=== PATIENT | male | born 1970 | race Caucasian/White ===

== ENCOUNTER → 2018-12-05 | Outpatient (CLI) | payer OTHER ==
--- NOTE | 2018-12-05 08:55 | MR ---
EXAMINATION TYPE: MR shoulder RT wo con DATE OF EXAM: 12/05/2018 COMPARISON: NONE HISTORY: Right shoulder pain, synovitis and tenosynovitis, bursitis, rotator cuff tendinopathy, loose body, os acromiale ORDER. TECHNIQUE: Multiplanar, multisequence imaging of the right shoulder is performed without contrast. FINDINGS: Rotator Cuff: Marked increased signal within the distal supraspinatus tendon with less prominent incr eased signal involving the infraspinatus tendon but there is articular surface tear at level of the i nfraspinatus tendon measuring 19 mm in AP diameter sagittal measures 23 x 9 mm transversely coronal i mage 20 . Complete tear of the subscapularis tendon is present with stump retraction to the medial ma rgin of humerus seen best coronal image 8. Rotator cuff muscle bulk is preserved. Acromioclavicular Joint: Os acromiale is confirmed seen best on axial image 21. Moderate to severe na rrowing with moderate capsular hypertrophy. Loss of underlying fat plane. Distal acromion morphology unremarkable. Glenohumeral Joint: Moderate to severe narrowing particularly inferior aspect with small to moderate size joint effusion extending inferiorly coronal image 18. Labrum: The superior labrum shows abnormal signal consistent with degenerative tear coronal image 14. Biceps Tendon: The long head of biceps is dislocated medially from groove but remains intact to the b iceps anchor seen in both coronal image 10. Bone marrow signal: Some subchondral cystic change involving superior lateral aspect of the humeral h ead. Other: Medial to the dislocated biceps tendon there is suspected intra-articular loose body suspected anterior to the glenoid measuring 10 x 8 mm coronal image 9 correlating with axial image 11 with adj acent similar size loose body seen inferior to this coronal image 10 and axial image 9. IMPRESSION: 1. Complete tear of supraspinatus tendon with dislocated long head of biceps tendon. 2. Tendinosis distal supraspinatus tendon. Fairly large articular surface distal infraspinatus tendon . 3. Confirmation of os acromiale. Fairly moderate to severe glenohumeral and acromioclavicular joint a rthropathy as detailed above. Confirmation of suspected intra-articular loose bodies. Donor site not clearly seen.
== END | disposition home or self-care (01) ==
LOC: RADMRIMAIN 07:59
PROVIDERS: ATTEND Orthopaedic Surgery
DX: M75.121 Complete rotator cuff tear or rupture of right shoulder, not specified as traumatic (principal); M67.813 Other specified disorders of tendon, right shoulder; M24.011 Loose body in right shoulder; M19.011 Primary osteoarthritis, right shoulder

== ENCOUNTER → 2020-06-16 | Day surgery (SDC) | payer OTHER ==
[2020-06-14 13:12] VITALS: BMI 27.7
[~2020-06-16] MED LIST: LACTATED RINGERS 1,000 ML IV SCH; LIDOCAINE 1% INJ 10MG/ML (20 ML MDV) ONE; PROPOFOL 10 MG/ML 20 ML VIAL IV ONE
[2020-06-16 07:58] VITALS: RESP 16; TEMP 97.2
--- NOTE | 2020-06-16 09:12 | P.PCN ---
Date of Procedure: 06/16/20 Description of Procedure: BRIEF HISTORY: Patient is a 49-year-old male presenting for outpatient colonoscopy for screening for malignant neoplasm of the colon. No change in bowel habits, but per rectum or abdominal pain. No family history of colon cancer. PROCEDURE PERFORMED: Colonoscopy with polypectomy. PREOPERATIVE DIAGNOSIS: Screening for malignant neoplasm of the colon, no prior colonoscopy. ESTIMATED BLOOD LOSS: Minimal. IV sedation per Anesthesia. PROCEDURE: After informed consent was obtained, the patient, was brought into the endoscopy unit. IV sedation was administered by Anesthesia under continuous monitoring. Digital rectal examination was normal. Initially the Olympus CF-190 flexible video colonoscope was then inserted in the rectum, gradually advanced into the cecum without any difficulty. Careful examination was performed as the scope was gradually being withdrawn. Ileocecal valve and the appendiceal orifice were visualized and appeared normal. Prep was excellent. Mucosa of the cecum, ascending colon, transverse colon, descending colon, sigmoid colon, and rectum appeared normal. Flat 11 mm tubulous villous-appearing polyp removed with hot snare polypectomy in the cecum. Sessile 4 mm transverse colon polyp removed with hot snare polypectomy. Diminutive 2 mm splenic flexure polyp removed with cold snare polypectomy. A few scattered diverticula noted in the sigmoid colon. Retroflexion was performed in the rectum and no lesions were seen, internal hemorrhoids seen. The patient tolerated the procedure well. IMPRESSION: Possible polypectomy of polyp from the cecum and transverse colon. Diminutive splenic flexure polyp removed with cold snare polypectomy. Mild sigmoid diverticulosis. RECOMMENDATIONS: Findings of this examination were discussed with the patient and his family. Okay to resume diet. Okay to resume medications. Await pathology from polypectomies. Recommend repeat colonoscopy in 3 years for history of polyps.
[2020-06-16 09:47] VITALS: BP 122/80; PULSE 58
== END ==
LOC: ORWHC2ENDO 07:34
PROVIDERS: ATTEND Internal Medicine
DX: Z12.11 Encounter for screening for malignant neoplasm of colon (principal); D12.0 Benign neoplasm of cecum; D12.3 Benign neoplasm of transverse colon; K64.8 Other hemorrhoids; K57.30 Diverticulosis of large intestine without perforation or abscess without bleeding; K21.9 Gastro-esophageal reflux disease without esophagitis; I10 Essential (primary) hypertension; Z90.89 Acquired absence of other organs; Z98.890 Other specified postprocedural states; Z79.899 Other long term (current) drug therapy; Z87.891 Personal history of nicotine dependence
CPT/HCPCS: 88305; 45385; J2001; J2704

== ENCOUNTER → 2020-07-19 | Outpatient (CLI) | payer OTHER ==
--- NOTE | 2020-07-19 12:36 | ECHOT ---
TRANSESOPHAGEAL ECHOCARDIOGRAM INDICATION: Chest pain. PROCEDURE PERFORMED: Transesophageal echocardiogram. DESCRIPTION OF PROCEDURE: Baseline EKG shows sinus rhythm, normal axis, normal intervals. Patient exercised on Anthony protocol for a total of 10 minutes achieving 11 METS, 94% of predicted maximal heart rate without chest pain. At peak exercise, there was 0.[address]-segment depression noted. Baseline echo shows normal left ventricular size, wall motion and systolic function. Postexercise, there is normal hyperdynamic response of all segments of myocardium noted. CONCLUSIONS: 1. Good exercise tolerance. 2. Nondiagnostic EKG changes with exercise. 3. Negative stress echo. MMODL / IJN: [id number] /
== END | disposition home or self-care (01) ==
LOC: RADNMMAIN 09:42
PROVIDERS: ATTEND Family Medicine
DX: Z01.810 Encounter for preprocedural cardiovascular examination (principal); R07.9 Chest pain, unspecified
CPT/HCPCS: 93351

== ENCOUNTER → 2020-08-08 | Outpatient (CLI) | payer OTHER ==
--- NOTE | 2020-08-09 09:05 | US ---
EXAMINATION TYPE: US prostate transrectal DATE OF EXAM: 08/08/2020 COMPARISON: NONE CLINICAL HISTORY: R97.20 Elevated PSA. Elevated PSA, patient states he has noticed an increase in uri ne frequency This examination was performed using the transrectal probe. EXAM MEASUREMENTS: Gland Size: 5.7 x 5.7 x 3.3 cm Volume: 56.0 ml Predicted PSA: 6.7 Actual PSA (if available):4.3 Peripheral zone appears heterogenous with no prominent masses or lesions visualized at time of scan. IMPRESSION: Benign prostatic hypertrophy. Nonspecific heterogeneity of the peripheral zone. Consider tissue diagnosis if felt to be indicated. Predicted PSA = volume x 0.12 ng/ml Calculated Volume = 0.5236 x L x W x H
== END | disposition home or self-care (01) ==
LOC: RADUSWWP 10:07
PROVIDERS: ATTEND Family Medicine
DX: N40.0 Benign prostatic hyperplasia without lower urinary tract symptoms (principal); R97.20 Elevated prostate specific antigen [PSA]
CPT/HCPCS: 76872

== ENCOUNTER 2020-08-18 08:25 | Day surgery (SDC) | payer OTHER ==
[2020-08-16 11:19] VITALS: BMI 28.3
[~2020-08-18 08:25] MED LIST changes: +LIDOCAINE 1% (10MG/ML) FOR IV START INTRADERMA PRN; -LIDOCAINE 1% INJ 10MG/ML (20 ML MDV) ONE; -PROPOFOL 10 MG/ML 20 ML VIAL IV ONE
[2020-08-18 09:13] VITALS: RESP 16; TEMP 97.9
[2020-08-18] MEDS ORDERED: PROPOFOL 10 MG/ML 20 ML VIAL IV ONE (09:31)
--- NOTE | 2020-08-18 09:51 | P.PCN ---
Date of Procedure: 08/18/20 Description of Procedure: BRIEF HISTORY: Patient is a 49-year-old male presenting for evaluation of GERD. Patient reports omeprazole therapy with refractory symptoms of reflux, and nausea occurring frequently. Currently taking his omeprazole prior to bed. PROCEDURE PERFORMED: Esophagogastroduodenoscopy with biopsy. PREOPERATIVE DIAGNOSIS: GERD, nausea. ESTIMATED BLOOD LOSS: Minimal. IV sedation per anesthesia. PROCEDURE: After informed consent was obtained, the patient was brought into the endoscopy unit. IV sedation was administered by Anesthesia under continuous monitoring. Initially the Olympus GIF-190 video endoscope was inserted into the mouth. Esophagus intubated without any difficulty. It was gradually advanced into the stomach and duodenum and carefully examined. The bulb and the second part of the duodenum appeared normal, with biopsies taken. The scope at this time was withdrawn to the stomach, adequately insufflated with air, and upon careful examination, mucosa of the antrum, body, cardia and the fundus appeared normal, except for some mild scattered erythema in the antrum and body suggestive of mild gastritis biopsies taken. The scope was then withdrawn into the esophagus. The GE junction was located at 43 cm from the incisors, with the Z line appearing somewhat irregular biopsies were taken of the lower esophagus. The esophagus appeared normal. There were no erosions or ulcerations seen and the patient tolerated the procedure well. IMPRESSION: 1. Mild gastritis. 2. Biopsies of the duodenum, antrum body and lower esophagus. RECOMMENDATIONS: The findings of this examination were discussed with the patient and his family. Okay to resume diet. Okay to resume medications. Continue omeprazole therapy, with extensive discussion with the patient regarding trying to take the medication 30 minutes prior to eating for increased effects. If still symptomatic suggestion was made for initiation of [id number] Pepcid prior to bed. Await pathology from biopsies if any evidence of Gomez's esophagus would recommend repeat EGD and 2 years which has been discussed with the patient.
[2020-08-18 10:12] VITALS: BP 134/87; PULSE 62
== END 2020-08-18 10:20 | disposition home or self-care (01) ==
LOC: ORWHC2ENDO 08:25
PROVIDERS: ATTEND Internal Medicine
DX: D72.820 Lymphocytosis (symptomatic) (principal); K29.50 Unspecified chronic gastritis without bleeding; K21.9 Gastro-esophageal reflux disease without esophagitis; Z87.891 Personal history of nicotine dependence; Z79.899 Other long term (current) drug therapy; Z90.89 Acquired absence of other organs; Z98.890 Other specified postprocedural states; I10 Essential (primary) hypertension; M19.90 Unspecified osteoarthritis, unspecified site
CPT/HCPCS: 88305; 43239; J2704

== ENCOUNTER 2023-03-25 13:59 | Emergency (ER) | payer BC ==
--- NOTE | 2023-03-25 14:31 | ED ---
Dizziness HPI - General Source: patient, RN notes reviewed Mode of arrival: ambulatory Limitations: no limitations <Shirley Anderson - Last Filed: 03/25/23 14:29> <Pee Angela - Last Filed: 03/25/23 20:10> - General Chief Complaint: Syncope Stated Complaint: Fall, Hit Head-not thinners Time Seen by Provider: 03/25/23 14:29 - History of Present Illness Initial Comments: This is a 52-year-old male who presents to the emergency department for a syncopal episode. Patient was at his urologist's office this morning and had a cystoscopy done. He went to check out, and while he was standing at the checkout desk, he went backwards and hit his head. He did have loss of consciousness. Not taking any blood thinners. Patient has no recollection of the event. He denies any dizziness or strange sensations before the fall. Also states that he did not trip and is not sure what caused him to fall backwards. Denies any history of similar symptoms in the past. (Shirley Anderson) 52-year-old male presenting with chief complaint of syncopal episode. Patient was checking out at his urologist office after having a cystoscope done. While he was standing at the desk he states he started experiencing tunnel vision and fell backwards hitting his head. Patient did have loss of consciousness for less than a minute according to family at bedside. No blood thinners. At this time he is asymptomatic. He admits to a headache. He denies chest pain, difficulty breathing, abdominal pain, nausea, vomiting, dizziness, vision or hearing changes, numbness, tingling, weakness. No family hx of sudden cardiac . (Pee Angela) - Related Data Home Medications Medication Instructions Recorded Confirmed Losartan-Hctz 50-12.5 mg [Hyzaar 1 tab PO HS 08/16/20 08/16/20 50-12.5] Vista-3 Fatty Acids [Vista-3] 1,000 mg PO DIRECTED 08/16/20 08/16/20 Omeprazole 40 mg PO HS 08/16/20 08/16/20 Allergies Allergy/AdvReac Type Severity Reaction Status Date / Time No Known Allergies Allergy Verified 03/25/23 14:22 Review of Systems ROS Other: All systems not noted in ROS Statement are negative. <Shirley Anderson - Last Filed: 03/25/23 14:29> ROS Other: All systems not noted in ROS Statement are negative. <Pee Angela - Last Filed: 03/25/23 20:10> ROS Statement: Those systems with pertinent positive or pertinent negative responses have been documented in the HPI. Past Medical History Past Medical History: GERD/Reflux, Hypertension, Osteoarthritis (OA), Pneumonia Additional Past Medical History / Comment(s): BACK PAIN., FREQUENT NIGHT TIME URINATION History of Any Multi-Drug Resistant Organisms: None Reported Past Surgical History: Appendectomy, Orthopedic Surgery Additional Past Surgical History / Comment(s): MANJULA SHOULDER RECONSTRUCTION, MANJULA KNEE ARTHROSCOPY Past Anesthesia/Blood Transfusion Reactions: No Reported Reaction Past Psychological History: No Psychological Hx Reported Smoking Status: Former smoker Past Alcohol Use History: Occasional Past Drug Use History: None Reported - Past Family History Mother Family Medical History: Cancer Father Family Medical History: Cancer <Shirley Anderson - Last Filed: 03/25/23 14:29> General Exam Limitations: no limitations <Shirley Anderson - Last Filed: 03/25/23 14:29> Limitations: no limitations General appearance: alert, in no apparent distress Head exam: Present: atraumatic, normocephalic Eye exam: Present: normal appearance, PERRL, EOMI Pupils: Present: normal accommodation Neck exam: Present: normal inspection, full ROM Respiratory exam: Present: normal lung sounds bilaterally. Absent: respiratory distress, wheezes, rales, rhonchi, stridor Cardiovascular Exam: Present: regular rate, normal rhythm, normal heart sounds. Absent: systolic murmur, diastolic murmur, rubs, gallop, clicks Neurological exam: Present: alert, oriented X3 Expanded Patient oriented to: Present: person, place, time Speech: Present: fluid speech Cranial nerves: EOM's Intact: Normal Cerebellar function: Finger to Nose: Normal, Heel to [place]: Normal Sensory exam: Upper Extremity Light Touch: Normal, Lower Extremity Light Touch: Normal Motor strength exam: RUE: 5, LUE: 5, RLE: 5, LLE: 5 Eye Response: (4) open spontaneously Motor Response: (6) obeys commands Verbal Response: (5) oriented [place] Total: 15 Psychiatric exam: Present: normal affect, normal mood Skin exam: Present: warm, dry <Pee Angela - Last Filed: 03/25/23 20:10> - General Exam Comments Initial Comments: Visual Physical Exam Vital signs reviewed General: Well-appearing, nontoxic, no acute distress. Head: Normocephalic, atraumatic Eyes: PERRLA, EOMI ENT: Airway patent Chest: Nonlabored breathing Skin: No visual rash, normal skin tone Neuro: Alert and oriented 3 Musculoskeletal: No gross abnormalities (Shirley Anderson) Course Vital Signs 03/25/23 03/25/23 14:19 18:45 Temperature 98.4 F Pulse Rate 75 81 Respiratory 20 16 Rate Blood Pressure 120/71 134/82 O2 Sat by Pulse 99 99 Oximetry EKG Findings - EKG Comments: EKG Findings:: EKG shows sinus rhythm with occasional ventricular premature complexes. Ventricular rate 77. WI interval 150. QRS 106. QT 344. QTc 376. Normal axis. <Pee Angela - Last Filed: 03/25/23 20:10> Medical Decision Making <Shirley Anderson - Last Filed: 03/25/23 14:29> - Lab Data Result diagrams: 03/25/23 17:05 03/25/23 14:54 <Pee Angela - Last Filed: 03/25/23 20:10> - Medical Decision Making I performed the QuickNote portion of this chart. Signed Shirley Anderson PA-C. (Shirley Anderson) Was pt. sent in by a medical professional or institution ([facility], [facility], urgent care, hospital, or intermediate...) When possible be specific @ -No Did you speak to anyone other than the patient for history (EMS, parent, family, police, friend...)? What history was obtained from this source @ -No Did you review nursing and triage notes (agree or disagree)? Why? @ -I reviewed and agree with nursing and triage notes Were old charts reviewed (outside hosp., previous admission, EMS record, old EKG, old radiological studies, urgent care reports/EKG's, intermediate records)? Report findings @ -No old charts were reviewed Differential Diagnosis (chest pain, altered mental status, abdominal pain women, abdominal pain men, vaginal bleeding, weakness, fever, dyspnea, syncope, headache, dizziness, GI bleed, back pain, seizure, CVA, palpatations, mental health, musculoskeletal)? @ -MDM Differential Syncope: Valvular disease, hypertrophic cardiomyopathy, pulmonary embolism, tamponade, tachycardia, bradycardia, VT, hypovolemia, hemorrhage, dissection, anemia, intracranial hemorrhage, seizure, hypoglycemia, carbon monoxide poisoning this is not meant to be an all-inclusive list. EKG interpreted by me (3pts min.). @ -As above X-rays interpreted by me (1pt min.). @ -Chest x-ray shows no acute process CT interpreted by me (1pt min.). @ -CT shows age-related atrophic and chronic small vessel ischemic change without acute intracranial process seen. No evidence for acute fracture or subluxation of the cervical spine. U/S interpreted by me (1pt. min.). @ -None done What testing was considered but not performed or refused? (CT, X-rays, U/S, labs)? Why? @ -None What meds were considered but not given or refused? Why? @ -None Did you discuss the management of the patient with other professionals (professionals i.e. , PA, [facility], lab, RT, psych nurse, social media campaign manager, liquor store manager, teacher, unarmed security officer, case management associate)? Give summary @ -No Was smoking cessation discussed for >3mins.? @ -No Was critical care preformed (if so, how long)? @ -No Were there social determinants of health that impacted care today? How? (Homelessness, low income, unemployed, alcoholism, drug addiction, transportation, low edu. Level, literacy, decrease access to med. care, long-term, rehab)? @ -No Was there de-escalation of care discussed even if they declined (Discuss DNR or withdrawal of care, Hospice)? DNR status @ -No What co-morbidities impacted this encounter? (DM, HTN, Smoking, COPD, CAD, Cancer, CVA, ARF, Chemo, Hep., AIDS, mental health diagnosis, sleep apnea, morbid obesity)? @ -None Was patient admitted / discharged? Hospital course, mention meds given and route, prescriptions, significant lab abnormalities, going to OR and other pertinent info. @ -52-year-old male presenting with chief complaint of syncopal episode. This occurred after the patient had a cystoscopy performed at the urologist office today. Workup is initiated by triage. Lab work shows no leukocytosis or anemia. Coags are WNL. Troponin is negative. Remainder of lab work requires no action. CT of the brain and cervical spine shows no acute process. Negative chest x-ray. EKG shows sinus rhythm. Patient is then placed in the room after several hours in the waiting room, on my evaluation he has no focal neurological deficits and a GCS of 15. He is resting comfortably. No family history of sudden cardiac . He is educated on today's findings and discharged home. Follow-up with PCP. Report back to ER with any new or worsening symptoms. Discussed return parameters and answered all questions. Patient conveyed verbal understanding and agreed to the plan. I discussed this case in detail with my attending Dr. Nunez Undiagnosed new problem with uncertain prognosis? @ -No Drug Therapy requiring intensive monitoring for toxicity (Heparin, Nitro, Insulin, Cardizem)? @ -No Were any procedures done? @ -No Diagnosis/symptom? @ -Syncopal episode Acute, or Chronic, or Acute on Chronic? @ -Acute Uncomplicated (without systemic symptoms) or Complicated (systemic symptoms)? @ -Uncomplicated Side effects of treatment? @ -No Exacerbation, Progression, or Severe Exacerbation? @ -No Poses a threat to life or bodily function? How? (Chest pain, USA, VT, pneumonia, PE, COPD, DKA, ARF, appy, cholecystitis, CVA, Diverticulitis, Homicidal, Suicidal, threat to staff... and all critical care pts) @ -Low likelihood (Pee Angela) - Lab Data Lab Results 03/25/23 03/25/23 03/25/23 Range/Units 14:54 14:54 14:54 WBC (3.8-10.6) k/uL RBC (4.30-5.90) m/uL Hgb (13.0-17.5) gm/dL Hct (39.0-53.0) % MCV (80.0-100.0) fL MCH (25.0-35.0) pg MCHC (31.0-37.0) g/dL RDW (11.5-15.5) % Plt Count (150-450) k/uL MPV Neutrophils % % Lymphocytes % % Monocytes % % Eosinophils % % Basophils % % Neutrophils # (1.3-7.7) k/uL Lymphocytes # (1.0-4.8) k/uL Monocytes # (0-1.0) k/uL Eosinophils # (0-0.7) k/uL Basophils # (0-0.2) k/uL PT 10.3 (10.0-12.5) sec INR 0.9 (<1.2) APTT 22.5 (22.0-30.0) sec Sodium 142 (137-145) mmol/L Potassium 4.0 (3.5-5.1) mmol/L Chloride 108 H (98-107) mmol/L Carbon Dioxide 22 (22-30) mmol/L Anion Gap 12 mmol/L BUN 16 (9-20) mg/dL Creatinine 0.83 (0.66-1.25) mg/dL Est GFR (CKD-EPI)AfAm >90 (>60 ml/min/1.73 sqM) Est GFR (CKD-EPI)NonAf >90 (>60 ml/min/1.73 sqM) Glucose 104 H (74-99) mg/dL Calcium 10.1 (8.4-10.2) mg/dL Total Bilirubin 0.7 (0.2-1.3) mg/dL AST 29 (17-59) U/L ALT 28 (4-49) U/L Alkaline Phosphatase 68 (38-126) U/L Troponin I 0.026 (0.000-0.034) ng/mL Total Protein 8.5 H (6.3-8.2) g/dL Albumin 5.1 H (3.5-5.0) g/dL 03/25/23 Range/Units 17:05 WBC 10.6 (3.8-10.6) k/uL RBC 4.85 (4.30-5.90) m/uL Hgb 14.3 (13.0-17.5) gm/dL Hct 43.1 (39.0-53.0) % MCV 88.8 (80.0-100.0) fL MCH 29.5 (25.0-35.0) pg MCHC 33.2 (31.0-37.0) g/dL RDW 13.1 (11.5-15.5) % Plt Count 238 (150-450) k/uL MPV 7.3 Neutrophils % 87 % Lymphocytes % 8 % Monocytes % 3 % Eosinophils % 2 % Basophils % 0 % Neutrophils # 9.1 H (1.3-7.7) k/uL Lymphocytes # 0.9 L (1.0-4.8) k/uL Monocytes # 0.3 (0-1.0) k/uL Eosinophils # 0.2 (0-0.7) k/uL Basophils # 0.0 (0-0.2) k/uL PT (10.0-12.5) sec INR (<1.2) APTT (22.0-30.0) sec Sodium (137-145) mmol/L Potassium (3.5-5.1) mmol/L Chloride (98-107) mmol/L Carbon Dioxide (22-30) mmol/L Anion Gap mmol/L BUN (9-20) mg/dL Creatinine (0.66-1.25) mg/dL Est GFR (CKD-EPI)AfAm (>60 ml/min/1.73 sqM) Est GFR (CKD-EPI)NonAf (>60 ml/min/1.73 sqM) Glucose (74-99) mg/dL Calcium (8.4-10.2) mg/dL Total Bilirubin (0.2-1.3) mg/dL AST (17-59) U/L ALT (4-49) U/L Alkaline Phosphatase (38-126) U/L Troponin I (0.000-0.034) ng/mL Total Protein (6.3-8.2) g/dL Albumin (3.5-5.0) g/dL Disposition <Shirley Anderson - Last Filed: 03/25/23 14:29> Is patient prescribed a controlled substance at d/c from ED?: No Time of Disposition: 18:32 <Pee Angela - Last Filed: 03/25/23 20:10> Clinical Impression: Vasovagal syncope Disposition: HOME SELF-CARE Condition: Good Instructions (If sedation given, give patient instructions): Syncope (ED) Additional Instructions: Follow-up with PCP. Report back to ER with any new or worsening symptoms. Referrals: Cleveland Grigsby MD [Primary Care Provider] - 1-2 days
[2023-03-25 14:39] VITALS: TEMP 98.4
[2023-03-25 15:12] LABS: INR 0.9 (<1.2); Partial Thromboplastin Time 22.5 sec (22.0-30.0); Prothrombin Time 10.3 sec (10.0-12.5)
[2023-03-25 15:13] LABS: ALT 28 U/L (4-49); AST 29 U/L (17-59); African American GFR (CKD) >90 (>60 ml/min/1.73 sqM); Albumin 5.1 g/dL (3.5-5.0); Alkaline Phosphatase 68 U/L (38-126); Anion Gap 12 mmol/L; Blood Urea Nitrogen 16 mg/dL (9-20); Calcium 10.1 mg/dL (8.4-10.2); Carbon Dioxide 22 mmol/L (22-30); Chloride 108 mmol/L (98-107); Glucose 104 mg/dL (74-99); Non-African American GFR(CKD) >90 (>60 ml/min/1.73 sqM); Sodium 142 mmol/L (137-145); Total Bilirubin 0.7 mg/dL (0.2-1.3); Total Protein 8.5 g/dL (6.3-8.2)
--- NOTE | 2023-03-25 15:28 | XR ---
EXAMINATION TYPE: XR chest 2V DATE OF EXAM: 03/25/2023 COMPARISON: NONE TECHNIQUE: PA and lateral views submitted. HISTORY: Syncope FINDINGS: The lungs are clear and there is no pneumothorax, pleural effusion, or focal pneumonia. Heart size normal and no overt failure. Osseous structures demonstrate hypertrophic and degenerative changes of the spine. Hyperinflation suggests COPD. Bilateral mild AC joint arthropathy. Curvature of the spine. IMPRESSION: 1. No acute process.
--- NOTE | 2023-03-25 15:58 | CT ---
EXAMINATION TYPE: CT brain chip cui DATE OF EXAM: 03/25/2023 COMPARISON: None HISTORY: fall, syncope CT DLP: 1486.[address] of the brain was performed. The ventricles, basal cisterns and sulci overlying the cerebral convexities demonstrate mild enlargem ent. There is no evidence for intracranial hemorrhage or sulcal effacement. There is decreased attenuatio n about the periventricular white matter and deep white matter of both cerebral hemispheres, compatib le with chronic small vessel ischemia. No mass effects are seen. If symptoms persist consider MRI. Osseous calvarium is intact. IMPRESSION: 1. Age related atrophic and chronic small vessel ischemic change without acute intracranial process seen at this time. CT Cervical Spine: Unenhanced CT of the cervical spine was performed with bone and soft tissue window settings submitted . Coronal and sagittal reconstruction is obtained. There is normal alignment and prevertebral soft tissues. No evidence for acute cervical fracture . Scattered degenerative disc disease and spondylosis. Biapical scarring. IMPRESSION: 1. No evidence for acute fracture or subluxation of the cervical spine.
[2023-03-25 17:09] LABS: Basophils % (A) 0 %; Eosinophils # (A) 0.2 k/uL (0-0.7); Eosinophils % (A) 2 %; HCT 43.1 % (39.0-53.0); HGB 14.3 gm/dL (13.0-17.5); Lymphocytes # (A) 0.9 k/uL (1.0-4.8); Lymphocytes % (A) 8 %; MCH 29.5 pg (25.0-35.0); MCHC 33.2 g/dL (31.0-37.0); MCV 88.8 fL (80.0-100.0); Mean Platelet Volume 7.3; Monocytes # (A) 0.3 k/uL (0-1.0); Monocytes % (A) 3 %; Neutrophils # (A) 9.1 k/uL (1.3-7.7); Neutrophils % (A) 87 %; Platelet Count 238 k/uL (150-450); RBC 4.85 m/uL (4.30-5.90); RDW 13.1 % (11.5-15.5); WBC 10.6 k/uL (3.8-10.6)
[2023-03-25 19:08] VITALS: BP 134/82; PULSE 81; RESP 16
== END 2023-03-25 18:54 | disposition home or self-care (01) ==
LOC: EC 13:59
DX: I67.82 Cerebral ischemia (principal); K21.9 Gastro-esophageal reflux disease without esophagitis; I10 Essential (primary) hypertension; Z87.891 Personal history of nicotine dependence; Z79.899 Other long term (current) drug therapy
CPT/HCPCS: 36415; 70450; 71046; 72125; 80053; 84484; 85025; 85610; 85730; 93005; 99285

== ENCOUNTER → 2023-06-06 | Outpatient (CLI) | payer BC ==
[2023-06-06 16:02] LABS: Appearance,Urine Clear (Clear); Bilirubin,Urine Negative (Negative); Blood,Urine Negative (Negative); Color,Urine Yellow (Yellow); Ketones,Urine Negative (Negative); Nitrite,Urine Negative (Negative); PH, Urine 6.5; Specific Gravity,Urine 1.013 (1.001-1.030); Urobilinogen,Urine 0.2 E.U./DL
[2023-06-06 16:13] LABS: Basophils # (A) 0.01 X 10*3/uL (0.00-0.10); Basophils % (A) 0.3 %; Eosinophils # (A) 0.02 X 10*3/uL (0.04-0.35); Eosinophils % (A) 0.5 %; HCT 49.8 % (39.6-50.0); HGB 15.8 g/dL (13.0-17.0); Lymphocytes # (A) 1.34 X 10*3/uL (0.90-5.00); Lymphocytes % (A) 33.8 %; MCH 28.5 pg (27.0-32.0); MCHC 31.7 g/dL (32.0-37.0); MCV 89.7 FL (80.0-97.0); Mean Platelet Volume 9.7 FL (9.5-12.2); Monocytes % (A) 7.6 %; NRBC Per 100 WBC 0 X 10*3/uL (0.00-0.01); Neutrophils # (A) 2.28 X 10*3/uL (1.80-7.70); Neutrophils % (A) 57.5 %; Platelet Count 296 X 10*3/uL (140-440); RBC 5.55 X 10*6/uL (4.40-5.60); RDW 12.6 % (11.5-14.5); WBC 3.96 X 10*3/uL (4.50-10.00)
[2023-06-06 16:15] LABS: Calcium 10.3 mg/dL (8.7-10.3); Chloride 105 mmol/L (96-109); Glucose 137 mg/dL (70-110); Potassium 4.5 mmol/L (3.5-5.5); Sodium 142 mmol/L (135-145)
== END | disposition home or self-care (01) ==
LOC: LABPAT 11:20
PROVIDERS: ATTEND Urology
DX: Z01.812 Encounter for preprocedural laboratory examination (principal); N40.1 Benign prostatic hyperplasia with lower urinary tract symptoms
CPT/HCPCS: 36415; 80048; 81003; 85025; 87086

== ENCOUNTER 2023-06-18 06:09 | Day surgery (SDC) | payer BC ==
[2023-06-13 13:57] VITALS: BMI 26.4
--- NOTE | 2023-06-14 08:16 | P.HPIHPCON ---
History of Present Illness H&P Date: 06/14/23 Chief Complaint: BPH This is a 52-year-old male with history of BPH, has failed medical therapy. 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 Discussed with him given this finding option of TURP. Alternative surgical options were also discussed with him. He agreed to proceed with a transurethral resection of the prostate. Aware the risk which includes but not limited to bleeding, infection, retrograde ejaculation, erectile dysfunction, urinary incontinence. Discussed also potential persistent symptoms. He understood all the risk and agreed to proceed Consent for Procedure: I have explained the operation/procedure to the patient, including the risks, benefits, side effects, alternative therapies (including not receiving the proposed treatment or service), the likelihood of the patient achieving his/her goals, and potential recuperation problems for the procedure/sedation/analgesia, as well as any blood products, if indicated. I also explained to the patient the risks, benefits and side effects of the alternatives, as well as the risks related to not receiving the proposed procedure, care, treatment, or services. Past Medical History Past Medical History: GERD/Reflux, Hypertension, Osteoarthritis (OA), Pneumonia, Prostate Disorder Additional Past Medical History / Comment(s): GENERALIZED PAIN. Enlarged prostate. History of Any Multi-Drug Resistant Organisms: None Reported Past Surgical History: Appendectomy, Joint Replacement, Orthopedic Surgery Additional Past Surgical History / Comment(s): BILATERAL SHOULDER RECONSTRUCTION, BILATERAL KNEE ARTHROSCOPY, left thumb joint replacement. Past Anesthesia/Blood Transfusion Reactions: No Reported Reaction Smoking Status: Former smoker - Past Family History Mother Family Medical History: Cancer Father Family Medical History: Cancer Medications and Allergies Home Medications Medication Instructions Recorded Confirmed Type Anastrozole 1 mg PO WILLSON 06/13/23 06/13/23 History Tamsulosin HCl [Flomax] 0.4 mg PO BID 06/13/23 06/13/23 History Testosterone Cypionate 0.75 ml IM WILLSON 06/13/23 06/13/23 History [Depo-Testosterone] Allergies Allergy/AdvReac Type Severity Reaction Status Date / Time No Known Allergies Allergy Verified 06/13/23 13:22 Surgical - Exam - General no distress, no pain - Eyes normal ocular movement, no pale - ENT normal nares, normal mucosa - Respiratory normal expansion, normal respiratory effort - Abdomen Abdomen: soft, non tender Assessment and Plan Assessment: OR for bipolar TURP
[2023-06-18] MEDS ORDERED: ONDANSETRON 4 MG/2 ML VIAL IVP ONE (06:20)
[2023-06-18] MEDS ORDERED: DEXAMETHASONE SOD PHOSPHATE 4 MG/ML 1 ML VIAL IV ONE (06:20)
[2023-06-18] MEDS ORDERED: SCOPOLAMINE 1 MG/72 HR PATCH TRANSDERM ONE (06:20)
[2023-06-18] MEDS: LACTATED RINGERS 1,000 ML IV SCH (06:52)
[2023-06-18] MEDS ORDERED: MIDAZOLAM 2 MG/2 ML VIAL IV PRN (07:00)
[2023-06-18] MEDS: DEXAMETHASONE SOD PHOSPHATE 4 MG/ML 1 ML VIAL IVP ONE (07:10)
[2023-06-18] MEDS: ONDANSETRON 4 MG/2 ML VIAL IVP ONE (07:11)
[2023-06-18] MEDS ORDERED: MIDAZOLAM 2 MG/2 ML VIAL ONE (07:27)
[2023-06-18] MEDS ORDERED: LIDOCAINE 1% INJ 10MG/ML (20 ML MDV) ONE (07:27)
[2023-06-18] MEDS ORDERED: PROPOFOL 10 MG/ML 20 ML VIAL IV ONE (07:27)
[2023-06-18] MEDS ORDERED: HYDROmorphone (PF) 1 MG/ML ONE (07:27)
[2023-06-18] MEDS ORDERED: fentaNYL (PF) 50 MCG/ML 2 ML AMP ONE (07:27)
[2023-06-18] MEDS: HYDROmorphone 0.5 MG/0.5 ML SYRINGE IVP PRN (09:28)
[2023-06-18 09:35] VITALS: TEMP 97.1
[2023-06-18] MEDS: droPERidol 5 MG/2 ML VIAL IVP ONE (09:37)
[2023-06-18 10:21] VITALS: RESP 18
[2023-06-18 11:50] VITALS: BP 145/84; PULSE 96
--- NOTE | 2023-06-18 11:57 | P.OP ---
Date of Procedure: 06/18/23 Preoperative Diagnosis: BPH Postoperative Diagnosis: Same Procedure(s) Performed: TURP (Bipolar) Implants: none Anesthesia: ARCHIE Surgeon: Chase Bhakta Estimated Blood Loss (ml): 150 Pathology: other (Prostate adenoma) Condition: stable Disposition: PACU Indications for Procedure: This is a 52-year-old male with history of BPH, has failed medical therapy. 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 Discussed with him given this finding option of TURP. Alternative surgical options were also discussed with him. He agreed to proceed with a transurethral resection of the prostate. Aware the risk which includes but not limited to bleeding, infection, retrograde ejaculation, erectile dysfunction, urinary incontinence. Discussed also potential persistent symptoms. He understood all the risk and agreed to proceed Operative Findings: Trilobar hyperplasia Description of Procedure: Patient brought to the operating room, general anesthesia was induced. He was prepped and draped in sterile fashion placed in dorsolithotomy position. Resectoscope with a 25 Spanish sheath was inserted per urethra, cystoscopy was performed showed evidence of trilobar hyperplasia with a significant enlargement of the median lobe. Using the bipolar resectoscope the prostate was resected down to the surgical capsule, resection was carried distal to the bladder neck but staying proximal to the Veru. Points of bleeding were controlled with cautery. All prostate adenoma chips were irrigated out. Repeat cystoscopy showed no evidence of bleeding, injury to the bladder or the ureteral orifices, or any remaining chips within the bladder. At this time the resectoscope was withdrawn and a 20 Spanish coud catheter with 30 cc in the balloon was inserted. Catheter was irrigated to clear. Patient tolerated procedure well was taken to recovery in stable condition
== END 2023-06-18 11:49 | disposition home or self-care (01) ==
LOC: OR 06:09
PROVIDERS: ATTEND Urology
DX: N40.0 Benign prostatic hyperplasia without lower urinary tract symptoms (principal); K21.9 Gastro-esophageal reflux disease without esophagitis; I10 Essential (primary) hypertension; M19.90 Unspecified osteoarthritis, unspecified site; Z87.891 Personal history of nicotine dependence; Z90.49 Acquired absence of other specified parts of digestive tract; Z79.899 Other long term (current) drug therapy
CPT/HCPCS: 88305; 52601; J2250; J1100; J0690; J2405; J2001; J3010; J1170 ×2; J2704; J1790

== ENCOUNTER 2024-04-03 10:20 | Day surgery (SDC) | payer BC ==
[2024-04-03] MEDS: IV FLUID CONTINUATION 1,000 ML IV ONE (10:51)
[2024-04-03 10:58] VITALS: TEMP 98
[2024-04-03] MEDS: LACTATED RINGERS 1,000 ML IV SCH (11:10)
[2024-04-03] MEDS ORDERED: PROPOFOL 10 MG/ML 20 ML VIAL IV ONE (11:58)
--- NOTE | 2024-04-03 12:18 | P.PCN ---
Date of Procedure: 04/03/24 Procedure(s) Performed: BRIEF HISTORY: Patient is a 53-year-old pleasant white male scheduled for an elective colonoscopy as a part of screening for prior history of colon polyps. His last colonoscopy was 4 years ago and was noted to have an adenoma. PROCEDURE PERFORMED: Colonoscopy biopsy and snare polypectomy. PREOPERATIVE DIAGNOSIS: Screening for prior history of colon polyps. IV sedation per Anesthesia. PROCEDURE: After informed consent was obtained, the patient, was brought into the endoscopy unit. IV sedation was administered by Anesthesia under continuous monitoring. Digital rectal examination was normal. Initially the Olympus CF-160 flexible video colonoscope was then inserted in the rectum, gradually advanced into the cecum without any difficulty. Careful examination was performed as the scope was gradually being withdrawn. Ileocecal valve and the appendiceal orifice were visualized and appeared normal. Prep was excellent. Mucosa of the cecum, normal. In the ascending colon there were 4 polyps measuring between 5 to 6 mm in size all which were removed by cold snare polypectomy. In the transverse colon there was a 3 mm polyp that was removed by cold biopsy and were 2 polyps measuring 5 and 6 mm in size removed by cold snare polypectomy. In the sigmoid colon there is a 5 mm polyp removed by cold snare polypectomy. Rest of the ascending colon, transverse colon, descending colon, sigmoid colon, and rectum appeared normal. Retroflexion was performed in the rectum and no lesions were seen. The patient tolerated the procedure well. IMPRESSION: 4 polyps in the ascending colon measuring between 5 to 6 mm in size status post snare polypectomy 3 polyps in the transverse colon measuring between 3 to 6 mm in size status post cold biopsy and snare polypectomy respectively 5 mm sigmoid polyp status post cold snare polypectomy Scattered sigmoid diverticulosis. RECOMMENDATIONS: Findings of this examination were discussed with the patient as well as his family. He was advised to follow-up with the biopsy results. If the biopsy reveals adenoma he can have repeat colonoscopy in 3 years..
[2024-04-03 12:39] VITALS: BP 132/59; PULSE 75; RESP 16
== END 2024-04-03 13:05 | disposition home or self-care (01) ==
LOC: ORWHC2ENDO 10:20
PROVIDERS: ATTEND Internal Medicine Gastroenterology
DX: Z12.11 Encounter for screening for malignant neoplasm of colon (principal); D12.3 Benign neoplasm of transverse colon; K63.5 Polyp of colon; K57.30 Diverticulosis of large intestine without perforation or abscess without bleeding; I10 Essential (primary) hypertension; K21.9 Gastro-esophageal reflux disease without esophagitis; Z79.811 Long term (current) use of aromatase inhibitors; Z79.890 Hormone replacement therapy; Z87.891 Personal history of nicotine dependence; Z86.0101 Personal history of adenomatous and serrated colon polyps
CPT/HCPCS: 88305; 88342; 88341; 45380; 45385; J2704

== ENCOUNTER → 2024-09-04 | Outpatient (CLI) | payer BC ==
--- NOTE | 2024-09-04 09:37 | CT ---
EXAMINATION TYPE: CT heart w calcium score DATE OF EXAM: 09/04/2024 COMPARISON: None CLINICAL INDICATION: Male, 54 years old with history of E78.5 hyperlipidemia; PHH, FAMILY CARDIAC HIS TORY, HYPERLIPIDEMIA TECHNIQUE: Prospective Gating was used. Slice thickness: 3mm. Density threshold (HU): 130, Pixel threshold: 3, Algorithm: discrete. CT DLP: 74.[address] CTDI: mGy Automated exposure control for dose reduction was used. FINDINGS: CT CALCIUM SCORING Coronary calcium is a marker for plaque (fatty deposits) in a blood vessel or atherosclerosis (harden ing of the arteries). The presence and amount of calcium detected in a coronary artery by the CT sca n, indicates the presence and amount of atherosclerotic plaque. These calcium deposits appear years before the development of heart disease symptoms such as chest pain and shortness of breath. A calcium score is computed for each of the coronary arteries based upon the volume and density of th e calcium deposits. This can be referred to as your calcified plaque burden. It does not correspond directly to the percentage of narrowing in the artery but does correlate with the severity of the un derlying coronary atherosclerosis. RESULTS Region: LM Calcium Score ([place]): 0 Volume (mm3): 0 Mass (g): 0 Region: RCA Calcium Score ([place]): 45.12 Volume (mm3): 48.26 Mass (g): 16.09 Region: LAD Calcium Score ([place]): 206.35 Volume (mm3): 168.63 Mass (g): 56.21 Region: CX Calcium Score ([place]): 41.23 Volume (mm3): 36.61 Mass (g): 12.2 Region: PDA Calcium Score ([place]): 0 Volume (mm3): 0 Mass (g): 0 Total: Calcium Score ([place]): 292.7 Volume (mm3): 253.5 Mass (g): 84.5 TOTAL CALCIUM SCORE: 292.7 IMPRESSION: Calcium Score: 101-400 Implication: Definite, at least moderate atherosclerotic plaque. Risk of Coronary Artery Disease: Mild coronary artery disease highly likely, significant narrowings p ossible CALCIUM SCORE IMPLICATION RISK OF C ORONARY ARTERY DISEASE 0 No identifiable plaque Very low, generally less than 5% 1-10 Minimal identifiable plaque Very unlikely, less than 10% 11-100 Definite, at least mild atherosclerotic plaque Mild or m inimal coronary narrowings likely 101-400 Definite, at least moderate atherosclerotic plaque Mild coronary ar luca disease highly likely, significant narrowing possible 401 or Higher Extensive atherosclerotic plaque High lik elihood of at least one significant coronary narrowing [facility], , 09/04/2024 9:34 AM
== END | disposition home or self-care (01) ==
LOC: RADCTMAIN 06:59
PROVIDERS: ATTEND Family Medicine
DX: E78.5 Hyperlipidemia, unspecified (principal); I70.90 Unspecified atherosclerosis
CPT/HCPCS: 75571